=== PATIENT | male | born 1955 | race Caucasian/White ===

== ENCOUNTER 2018-06-08 22:24 | Inpatient (IN) | payer OTHER, MEDICAID ==
[2018-06-08] MEDS: SOD CHLORIDE 0.9% 1,000 ML IV (23:20)
[2018-06-08] MEDS: METHYLPREDNISOLONE 125 MG INJ IV (23:20)
[2018-06-08] MEDS: DIPHENHYDRAMINE 50 MG INJ IV (23:20)
[2018-06-08 23:21] LABS: ADD MAN DIFF? NO
[2018-06-08] MEDS: ALBUTEROL 0.5% (NEB) 2.5 MG/0.5 ML AMP INH (23:22)
[2018-06-08 23:23] LABS: BASOPHIL # 0.1 10^3/ul (0.0-0.1); BASOPHILS % 0.8 % (0.0-2.0); EOSINOPHILS # 0.1 10^3/ul (0.0-0.5); EOSINOPHILS % 1.9 % (0.0-7.0); HEMATOCRIT 39.7 % (42.0-52.0); HEMOGLOBIN 14.1 g/dl (14.0-18.0); LYMPHOCYTES # 1.8 10^3/ul (0.8-2.9); LYMPHOCYTES % 25.1 % (15.0-51.0); MEAN CORPUSCULAR HGB CONC 35.5 g/dl (32.0-37.0); MEAN CORPUSCULAR VOLUME 90.2 fl (82.0-101.0); MONOCYTE # 0.7 10^3/ul (0.3-0.9); MONOCYTES % 9.2 % (0.0-11.0); NEUTROPHIL # 4.6 10^3/ul (1.6-7.5); NEUTROPHILS % 62.7 % (39.0-77.0); PLATELET COUNT 104 10^3/UL (140-415); POSITIVE DIFF @See below; RED CELL DISTRIBUTION WIDTH 12.4 % (11.5-14.5)
[2018-06-08 23:23] LABS: WHITE BLOOD COUNT 7.3 10^3/ul (4.8-10.8)
[2018-06-08 23:38] LABS: ANION GAP 8 (5-13); BLOOD UREA NITROGEN 8 mg/dl (7-20); CALCIUM 9.1 mg/dl (8.4-10.2); CARBON DIOXIDE 24 mmol/L (21-31); CHLORIDE 110 mmol/L (97-110); CREATININE 0.61 mg/dl (0.61-1.24); GLUCOSE 100 mg/dl (70-220); POTASSIUM 3.9 mmol/L (3.5-5.1); SODIUM 142 mmol/L (135-144)
[2018-06-09 00:05] LABS: MEAN PLATELET VOLUME 11.6 fl (7.4-10.4)
[2018-06-09] MEDS ORDERED: DIPHENHYDRAMINE 50 MG INJ IM (00:30)
[2018-06-09] MEDS ORDERED: ACETAMINOPHEN 325 MG TAB PO (00:30)
[2018-06-09] MEDS ORDERED: ONDANSETRON 4 MG INJ IV (00:30)
[2018-06-09] MEDS ORDERED: ALBUTEROL 0.083% (NEB) 2.5 MG/3 ML AMP HHN (00:30)
[2018-06-09] MEDS ORDERED: BISACODYL (EC) 5 MG TAB PO (00:30)
[2018-06-09] MEDS ORDERED: NACL 0.9% 3 ML SYG IV (00:30)
[2018-06-09] MEDS ORDERED: DOCUSATE SODIUM 100 MG CAP PO (00:30)
[2018-06-09] MEDS: SOD CHLORIDE 0.9% 1,000 ML IV ×2 (01:32→14:22)
[2018-06-09] MEDS: RANITIDINE 50 MG in SOD CHLORIDE 0.9% 50 ML IVPB (01:33)
[2018-06-09 06:11] LABS: ADD MAN DIFF? NO
[2018-06-09] MEDS: PANTOPRAZOLE (EC) 40 MG TAB PO (06:18)
[2018-06-09 06:21] LABS: ABNORMAL IP MESSAGE 1; BASOPHILS % 0.3 % (0.0-2.0); EOSINOPHILS % 0.1 % (0.0-7.0); HEMATOCRIT 39.5 % (42.0-52.0); LYMPHOCYTES # 0.3 10^3/ul (0.8-2.9); MEAN CORPUSCULAR HEMOGLOBIN 32.5 pg (29.0-33.0); MEAN CORPUSCULAR HGB CONC 35.4 g/dl (32.0-37.0); MEAN CORPUSCULAR VOLUME 91.6 fl (82.0-101.0); MEAN PLATELET VOLUME 12.1 fl (7.4-10.4); MONOCYTE # 0.1 10^3/ul (0.3-0.9); NEUTROPHIL # 7.5 10^3/ul (1.6-7.5); NEUTROPHILS % 94.2 % (39.0-77.0); PLATELET COUNT 94 10^3/UL (140-415); POSITIVE DIFF @See below; RED BLOOD COUNT 4.31 10^6/ul (4.70-6.10); RED CELL DISTRIBUTION WIDTH 12.8 % (11.5-14.5)
[2018-06-09 06:40] LABS: ALANINE AMINOTRANSFERASE 31 IU/L (13-69); ALBUMIN 3.8 g/dl (3.3-4.9); ALBUMIN/GLOBULIN RATIO 1.05; ALKALINE PHOSPHATASE 62 IU/L (42-121); ANION GAP 10 (5-13); ASPARTATE AMINO TRANSFERASE 50 IU/L (15-46); BILIRUBIN,INDIRECT 0.5 mg/dl (0-1.1); BILIRUBIN,TOTAL 0.5 mg/dl (0.2-1.3); BLOOD UREA NITROGEN 8 mg/dl (7-20); CALCIUM 9.1 mg/dl (8.4-10.2); CARBON DIOXIDE 23 mmol/L (21-31); CHLORIDE 110 mmol/L (97-110); CREATININE 0.57 mg/dl (0.61-1.24); GLUCOSE 138 mg/dl (70-220); SODIUM 143 mmol/L (135-144); TOTAL PROTEIN 7.4 g/dl (6.1-8.1)
[2018-06-09 06:41] LABS: HEMOGLOBIN A1C 4.8 % (0-5.9)
[2018-06-09 06:52] LABS: CHOL/HDL RATIO 2.7 RATIO; HDL CHOLESTEROL 69 mg/dl (30-78); LDL CHOLESTEROL,CALCULATED 106 mg/dl; TRIGLYCERIDES 61 mg/dl (0-149)
[2018-06-09 06:52] LABS: CHOLESTEROL 187 mg/dl (100-200)
[2018-06-09 07:10] LABS: THYROID STIMULATING HORMONE 0.627 MIU/L (0.465-4.680)
[2018-06-09 07:12] LABS: MAGNESIUM 2.1 mg/dl (1.7-2.5)
[2018-06-09] MEDS: DEXAMETHASONE 4 MG/ML 1 ML INJ IV (08:06)
[2018-06-10] MEDS: SOD CHLORIDE 0.9% 1,000 ML IV ×2 (01:22→04:02)
[2018-06-10] MEDS: PANTOPRAZOLE (EC) 40 MG TAB PO (05:34)
[2018-06-10] MEDS: predniSONE 20 MG TAB PO (08:20)
== END 2018-06-10 14:43 | disposition home or self-care (01) | DRG 916 ==
LOC: 6WM 06-09 00:13 → E/R 22:24
DX: T78.49XA Other allergy, initial encounter (principal); R20.2 Paresthesia of skin; W57.XXXA Bitten or stung by nonvenomous insect and other nonvenomous arthropods, initial encounter; R49.0 Dysphonia
CPT/HCPCS: 71045; 80048; 80053; 80061; 83036; 83735; 84443; 85025; 90686; 94644; 96374; 96375; 99285-25

== ENCOUNTER 2018-07-14 11:02 | Emergency (ER) | payer OTHER | END 2018-07-14 11:46 | disposition home or self-care (01) | LOC: FTE 11:02 | DX: S71.111D Laceration without foreign body, right thigh, subsequent encounter (principal); W20.8XXD Other cause of strike by thrown, projected or falling object, subsequent encounter | CPT/HCPCS: 99283; Z7502 ==

== ENCOUNTER 2018-07-30 16:45 | Emergency (ER) | payer OTHER | END 2018-07-30 18:50 | disposition home or self-care (01) | LOC: FTE 16:45 | DX: Z48.02 Encounter for removal of sutures (principal) | CPT/HCPCS: 99281; Z7502 ==